=== PATIENT | male | born 1955 | race Caucasian/White ===

== ENCOUNTER 2022-06-29 17:27 | Emergency (ER) | payer MEDICARE, OTHER ==
[2022-06-29 19:01] LABS: ANION GAP 10.7 mEq/L (7-13)
[2022-06-29] MEDS ORDERED: Iopamidol 612 MG/ML 100 ML Bottle IVPUSH ONE (19:49)
== END 2022-06-29 22:05 | disposition home or self-care (01) ==
LOC: DL.ED 17:27
DX: S39.011A Strain of muscle, fascia and tendon of abdomen, initial encounter (principal)
CPT/HCPCS: 36415; 74178; 80053; 81001; 85025; 86140; 99284; Q9967; 74174; 99283

== ENCOUNTER 2023-02-25 22:09 | Emergency (ER) | payer MEDICARE, OTHER ==
[2023-02-25 22:53] LABS: ANION GAP 14.1 mEq/L (7-13); CHLORIDE,CL 102 mmol/L (98-107); ESTIMATED GFR 64 mL/min (>=60); SODIUM,NA 141 mmol/L (136-145)
== END 2023-02-26 01:08 | disposition home or self-care (01) ==
LOC: DL.ED 22:09
DX: R07.9 Chest pain, unspecified (principal); E78.00 Pure hypercholesterolemia, unspecified; E11.9 Type 2 diabetes mellitus without complications; Z79.84 Long term (current) use of oral hypoglycemic drugs; Z79.899 Other long term (current) drug therapy
CPT/HCPCS: 36415; 71045; 80053; 83605; 84484; 85025; 85379; 93005; 93010; 99284; 99285

== ENCOUNTER 2023-03-24 20:25 | Emergency (ER) | payer MEDICARE, OTHER | END 2023-03-24 20:53 | disposition home or self-care (01) | LOC: DL.ED 20:25 | DX: Z48.817 Encounter for surgical aftercare following surgery on the skin and subcutaneous tissue (principal); E78.00 Pure hypercholesterolemia, unspecified; E11.9 Type 2 diabetes mellitus without complications; Z79.84 Long term (current) use of oral hypoglycemic drugs; Z98.890 Other specified postprocedural states | CPT/HCPCS: 99282 ==